=== PATIENT | male | born 1975 | race Caucasian/White ===

== ENCOUNTER 2020-02-27 15:28 | Emergency (ER) | payer OTHER ==
[~2020-02-27] VITALS: Ht 187 cm; Wt 113.0 kg
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
[2020-02-27 16:44] VITALS: BP 166/104
--- NOTE | 2020-02-27 16:44 | NUR ---
PT DISCHARGED TO HOME W/ INSTR. DR PAUL AWARE OF PT'S B/P, NO ACTION TAKEN AT THIS TIME. PT TO TAKE MEDS DIRECTED, F/U W/ PCP ET RETURN IF SYMPTOMS CHANGE OR GET WORSE. NO OTHER C/O VOICED, PT VOICED UNDERSTANDING
== END 2020-02-27 16:44 | disposition home or self-care (01) ==
LOC: ER 15:31
DX: S30.1XXA Contusion of abdominal wall, initial encounter (principal); Z87.891 Personal history of nicotine dependence; V59.40XA Driver of pick-up truck or van injured in collision with unspecified motor vehicles in traffic accident, initial encounter
CPT/HCPCS: 99282